=== PATIENT | female | born 1995 | race Caucasian/White ===

== ENCOUNTER 2017-01-05 16:14 | Emergency (ER) | payer BC ==
[~2017-01-05] VITALS: Ht 154.9 cm; Wt 46.0 kg
[~2017-01-05 16:14] MED LIST: BUPRTAB51 PO; LAMO100T16 PO; LISD30CA4 PO
[2017-01-05 16:40] VITALS: Ht 154.9 cm; Wt 46.0 kg
[2017-01-05] MEDS ORDERED: BUPR-79 PO (17:32)
[2017-01-05] MEDS ORDERED: BUPR150T5 PO (17:33)
[2017-01-05] MEDS ORDERED: LISD40CA PO (17:34)
[2017-01-05] MEDS ORDERED: ONDANSETRON INJ 2 MG/ML 2 ML VIAL IV STA (17:35)
[2017-01-05] MEDS ORDERED: SODIUM CHLORIDE 0.9% 1000ML 2,000 ML IV STA (17:35)
[2017-01-05 17:57] LABS: BASO % 0.5 %; BASO ABS # 0.02 K/uL (0-0.2); COMPLETE YES; EOS % 1.7 %; HEMATOCRIT 42.6 % (37-47); IG% 0.2 %; LYMPH ABS # 1.18 K/uL (1.2-3.4); MEAN CELL VOLUME 96.2 fL (80-100); MEAN CORPUSCULAR HEMOGLOBIN 34.1 pg (25-34); MEAN CORPUSCULAR HGB CONC 35.4 g/dl (32-36); MEAN PLATELET VOLUME 10.4 fL (7.4-10.4); NEUT % 50.6 %; PLATELET COUNT 244 K/uL (130-400); RED BLOOD COUNT 4.43 M/uL (4.2-5.4); WHITE BLOOD COUNT 4.21 K/uL (4.8-10.8)
[2017-01-05 18:15] LABS: BUN/CREATININE RATIO 6.3 (10-20); CALCIUM 9.4 mg/dl (8.5-10.1); CREATININE 0.63 mg/dl (0.60-1.20); POTASSIUM 3.2 mmol/L (3.5-5.1)
[2017-01-05 18:29] LABS: PREG INTERNAL NEGATIVE QC NEG CLEAR BACKGROUND; PREG INTERNAL POSITIVE QC POS CONTROL LINE
[2017-01-05] MEDS ORDERED: POTASSIUM CHLORIDE 10 MEQ TABCR PO STA (19:34)
[2017-01-05] MEDS ORDERED: CIPROFLOXACIN 500 MG TAB PO STA ×2 (19:43)
[2017-01-05] MEDS ORDERED: ONDANSETRON HOME PACK 4MG OD TAB PO ONE (19:45)
[2017-01-05] MEDS ORDERED: EMPTY 8 DRAM VIAL ONE (19:48)
[2017-01-05 19:50] LABS: URINE APPEARANCE CLEAR (CLEAR); URINE BILIRUBIN NEG (NEG); URINE COLOR YELLOW; URINE EPITHELIAL CELL AUTO >30 /lpf (0-5); URINE NITRITE NEG (NEG); UROBILINOGEN NEG (NEG)
[2017-01-05 19:52] LABS: MANUAL MICROSCOPIC REQUIRED? NO; REVIEW REQ? NO
[2017-01-05] MEDS ORDERED: CIPR-255 PO (19:55)
[2017-01-05 20:34] VITALS: BP 108/69; PULSE 85; TEMP 36.9; O2SAT 97
--- NOTE | 2017-01-05 21:29 | EMERGENCY ROOM VISIT NOTE ---
History Report prepared by Jorgeibemily: Darlene Hobson Under the Supervision of: Dr. Alan Jauregui M.D. First contact with patient: 17:10 Chief Complaint: DIARRHEA Stated Complaint: DIARRHEA,VOMITING,RECENT TRIP TO [facility] Nursing Triage Summary: Returned from [place] Thursday. Pt reports "I was violently throwing up and diarrhea before I left to come home." Since then, I have been throwing up and diarrhea. Pt reports "gas pain" History of Present Illness The patient is a 21 year old female who presents to the Emergency Room with complaints of persistent nausea, vomiting, and diarrhea that began 2 days ago. She also complains of some abdominal cramping, especially when she has episodes of vomiting and diarrhea. The patient notes that she was vacationing in [place] and woke up in the morning with vomiting and diarrhea for about 7-8 hours. Her symptoms did improve some, but she was very weak and needed her friends' assistance during their travel home. Since then, she has been able to keep down some fluids, but cannot keep down solid food. She also continues to feel nauseated and have diarrhea. She notes that she ate the same foods as her friends while in [place] but she was the only one who got sick. She drank bottled water while she was there. She thinks there may have been some blood in her diarrhea when her symptoms initially started, but she has not noticed any blood since. Pt denies LOC, headache, fevers, chills, diaphoresis, visual changes, neck pain, chest pain, breathing difficulties, abdominal pain, back pain, melena, hematochezia, urinary symptoms, numbness, weakness, lymphadenopathy, rash, or other complaints. Source of History: patient Onset: 2 days ago Position: other (GI) Quality: other ( nausea/vomiting/diarrhea) Timing: other (persistent) Associated Symptoms: + abdominal pain Review of Systems See HPI for pertinent positives and negatives. A total of ten systems were reviewed and were otherwise negative. Past Medical & Surgical Medical Problems: (1) Acute sinusitis (2) Fever (3) No pertinent past medical history Family History Patient reports no known family medical history. Social History Smoking Status: Never Smoker Alcohol Use: occasionally Drug Use: none Housing Status: lives with family Occupation Status: [employer] student Current/Historical Medications Scheduled Bupropion Hcl (Bupropion Hcl Xl), 150 MG PO DAILY Ciprofloxacin Hcl (Cipro), 500 MG PO BID Lamotrigine (Lamictal), 100 MG PO DAILY Lisdexamfetamine Dimesylate (Vyvanse), 40 MG PO [id number] Allergies Coded Allergies: No Known Allergies (Unverified , 10/04/16) Physical Exam Vital Signs Date Time Temp Pulse Resp B/P Pulse Ox O2 Delivery O2 Flow Rate FiO2 01/05/17 20:34 36.9 85 16 108/69 97 01/05/17 20:33 85 16 108/69 97 Room Air 01/05/17 18:35 87 16 110/71 97 Room Air 01/05/17 16:40 36.9 89 16 108/70 95 Room Air Physical Exam GENERAL: Awake, alert, well-appearing, in no distress HENT: Normocephalic, atraumatic. Dry mucous membranes; otherwise, oropharynx unremarkable. EYES: Normal conjunctiva. Sclera non-icteric. NECK: Supple. No nuchal rigidity. FROM. No JVD. RESPIRATORY: Clear to auscultation. CARDIAC: Regular rate, normal rhythm. Extremities warm and well perfused. Pulses equal. ABDOMEN: Soft, non-distended. No tenderness to palpation. No rebound or guarding. No masses. RECTAL: Deferred. MUSCULOSKELETAL: Chest examination reveals no tenderness. The back is symmetrical on inspection without obvious abnormality. There is no CVA tenderness to palpation. No joint edema. LOWER EXTREMITIES: Calves are equal size bilaterally and non-tender. No edema. No discoloration. NEURO: Normal sensorium. No sensory or motor deficits noted. SKIN: No rash or jaundice noted. Medical Decision & Procedures Laboratory Results 01/05/17 17:45 Red Blood Count 4.43, Mean Corpuscular Volume 96.2, Mean Corpuscular Hemoglobin 34.1, Mean Corpuscular Hemoglobin Concent 35.4, Mean Platelet Volume 10.4, Neutrophils (%) (Auto) 50.6, Lymphocytes (%) (Auto) 28.0, Monocytes (%) (Auto) 19.0, Eosinophils (%) (Auto) 1.7, Basophils (%) (Auto) 0.5, Neutrophils # (Auto ) 2.13, Lymphocytes # (Auto) 1.18, Monocytes # (Auto) 0.80, Eosinophils # (Auto ) 0.07, Basophils # (Auto) 0.02 01/05/17 17:45 Test 01/05/17 00:00 01/05/17 17:45 Urine Color YELLOW Urine Appearance CLEAR (CLEAR) Urine pH 7.0 (4.5-7.5) Urine Specific [place] 1.010 (1.000-1.030) Urine Protein NEG (NEG) Urine Glucose (UA) NEG (NEG) Urine Ketones NEG (NEG) Urine Occult Blood NEG (NEG) Urine Nitrite NEG (NEG) Urine Bilirubin NEG (NEG) Urine Urobilinogen NEG (NEG) Urine Leukocyte Esterase TRACE (NEG) Urine WBC (Auto) 1-5 /hpf (0-5) Urine RBC (Auto) 0-4 /hpf (0-4) Urine Hyaline Casts (Auto) 1-5 /lpf (0-5) Urine Epithelial Cells (Auto) >30 /lpf (0-5) Urine Bacteria (Auto) 1+ (NEG) White Blood Count 4.21 K/uL (4.8-10.8) Red Blood Count 4.43 M/uL (4.2-5.4) Hemoglobin 15.1 g/dL (12.0-16.0) Hematocrit 42.6 % (37-47) Mean Corpuscular Volume 96.2 fL (80-100) Mean Corpuscular Hemoglobin 34.1 pg (25-34) Mean Corpuscular Hemoglobin Concent 35.4 g/dl (32-36) Platelet Count 244 K/uL (130-400) Mean Platelet Volume 10.4 fL (7.4-10.4) Neutrophils (%) (Auto) 50.6 % Lymphocytes (%) (Auto) 28.0 % Monocytes (%) (Auto) 19.0 % Eosinophils (%) (Auto) 1.7 % Basophils (%) (Auto) 0.5 % Neutrophils # (Auto) 2.13 K/uL (1.4-6.5) Lymphocytes # (Auto) 1.18 K/uL (1.2-3.4) Monocytes # (Auto) 0.80 K/uL (0.11-0.59) Eosinophils # (Auto) 0.07 K/uL (0-0.5) Basophils # (Auto) 0.02 K/uL (0-0.2) RDW Standard Deviation 42.7 fL (36.4-46.3) RDW Coefficient of Variation 12.1 % (11.5-14.5) Immature Granulocyte % (Auto) 0.2 % Immature Granulocyte # (Auto) 0.01 K/uL (0.00-0.02) Anion Gap 9.0 mmol/L (3-11) Est Creatinine Clear Calc Drug Dose 103.4 ml/min Estimated GFR () 149.7 Estimated GFR (Non- 129.1 BUN/Creatinine Ratio 6.3 (10-20) Calcium Level 9.4 mg/dl (8.5-10.1) Total Bilirubin 0.6 mg/dl (0.2-1) Direct Bilirubin 0.1 mg/dl (0-0.2) Aspartate Amino Transf (AST/SGOT) 62 U/L (15-37) Alanine Aminotransferase (ALT/SGPT) 59 U/L (12-78) Alkaline Phosphatase 78 U/L (45-117) Total Protein 7.8 gm/dl (6.4-8.2) Albumin 3.8 gm/dl (3.4-5.0) Lipase 158 U/L (73-393) Human Chorionic Gonadotropin, Qual NEG (NEG) Laboratory results reviewed by me Medications Administered Medications (Trade) Dose Ordered Sig/Iliana Route Start Time Stop Time Status Last Admin Dose Admin Sodium Chloride (Nss 1000ml) 2,000 ml @ 999 mls/hr Q2H1M STAT IV 01/05/17 17:35 01/05/17 19:35 DC 01/05/17 18:05 999 MLS/HR Ondansetron HCl (Zofran Inj) 4 mg NOW STAT IV 01/05/17 17:35 01/05/17 17:37 DC 01/05/17 18:05 4 MG Potassium Chloride (Klor-Con M10) 20 meq NOW STAT PO 01/05/17 19:34 01/05/17 19:35 DC 01/05/17 19:43 20 MEQ Ciprofloxacin (Cipro Tab) 500 mg NOW STAT PO 01/05/17 19:43 01/05/17 19:45 DC 01/05/17 19:52 500 MG Ciprofloxacin (Cipro Tab) 500 mg NOW STAT PO 01/05/17 19:43 01/05/17 19:45 DC 01/05/17 19:57 500 MG Ondansetron HCl (ZOFRAN ODT 4MG Home Pack) 1 homepack UD ONCE PO 01/05/17 19:45 01/05/17 19:46 DC 01/05/17 19:52 1 [facility]OM[facility] ED Course 1733: The patient was evaluated in room C7. A complete history and physical exam was performed. Ordered Zofran Inj 4 mg IV, NSS 2000 ml @ 999 mls/hr IV. 1929: I reassessed the patient. She was feeling better. 1933: Ordered Klor-con M10 20 meq PO. 1942: Ordered Cipro Tab 500 mg PO, Cipro Tab 500 mg PO, Ondansetron HCl 1 homepack PO. 1944: I reevaluated the patient. She was resting comfortably and was able to keep down her potassium. Discussed results and discharge instructions: She verbalized understanding and agreement. The patient is ready for discharge. Medical Decision Prior records/ancillary studies reviewed. Triage Nursing notes reviewed and agree them. Additional history obtained from the family. The patient did ask for me to discuss the case with her mother. The patient's history was concerning for nausea, vomiting, diarrhea, and recent travel to [place] Differential diagnosis: Etiologies such as gastroenteritis, food borne illness, infections, appendicitis , diverticulitis, inflammatory bowel disease, GI bleed, biliary pathology, as well as others were entertained. Physical examination findings: As above. Benign abdomen. ER treatment provided: IV hydration 2 L NSS. IV Zofran On reassessment the patient felt better. Patient was tolerating p.o. intake. Oral potassium Oral Cipro Diagnostics interpretation by me: The labs revealed an unremarkable CBC and chemistry panel except for mild hypokalemia. Urinalysis negative. The patient is not . No stool samples provided. Imaging studies: Deferred Patient has travelers diarrhea and vomiting with mild hypokalemia. She has not had any bloody stools. I discussed conservative management and treatment with Cipro to hasten the course of her disease. The patient and mother felt very comfortable with this. If she worsens in any way she will come back to the Emergency Room. She will follow-up closely in the clinic. By the evaluation outlined above emergent etiologies such as appendicitis, diverticulitis, mesenteric ischemia, aortic pathology, inflammatory bowel disease, renal colic, PUD, biliary pathology, UTI, as well as others were deemed relatively unlikely. The patient and mother were informed about the findings as listed above. All questions were answered and they were pleased with the treatment. Return instructions were outlined and the patient was discharged in stable condition. Outpatient prescription management: Cipro Zofran Referral: The patient was referred to her primary care physician for follow-up in 2 to 3 days for a recheck of the current condition. The chart was completed utilizing [employer] Speech voice recognition software. Grammatical errors, random word insertions, pronoun errors, and incomplete sentences are an occasional consequence of this system due to software limitations, ambient noise, and hardware issues. Any formal questions or concerns about the content, text, or information contained within the body of this dictation should be directly addressed to the physician for clarification. Impression Primary Impression: Vomiting and diarrhea Additional Impression: Hypokalemia Scribe Attestation The scribe's documentation has been prepared under my direction and personally reviewed by me in its entirety. I confirm that the note above accurately reflects all work, treatment, procedures, and medical decision making performed by me. Departure Information Dispostion Home / Self-Care Prescriptions Ciprofloxacin Hcl (CIPRO) 500 Mg Tab 500 MG PO BID, #4 TAB Prov: Alan Jauregui MD 01/05/17 Referrals No Doctor, Assigned (PCP) [facility] Patient Instructions My [facility] Additional Instructions Ciprofloxacin 500mg: Take one pill twice daily for 3 days for your infection. All antibiotics can cause diarrhea. If this occurs and you feel worse or it does not resolve in 1-2 days follow up with your doctor or return to the Emergency Department as this could be signs of serious underlying problems. Any medication can cause an allergic reaction or complication, stop the pills immediately and return to the ER for rash, hives, breathing difficulties, tendon pain, tendon injury, or swelling. Zofran(odansetron) tablets 4mg: Take one and allow it to dissolve in your mouth every four to six hours as needed for nausea or vomiting. Acetaminophen(Tylenol) may be used for fever or pain. Use 650 mg every six hours as needed. Rest and drink plenty of fluids as tolerated. Slow sips of water or sports drinks are recommended instead of large amounts all at once. Continue current medications. Once your stomach is settled start with a clear liquid diet (jello, soup broth, etc.) and then advance as tolerated. You should avoid full, heavy meals for about 24 hrs from the time your symptoms resolved. Return to the ER for persistent vomiting, fevers, abdominal pain, chest pains, difficulty breathing, black or bloody stools, worsening of your condition, or as needed. Follow up with [facility] in 1-2 days for a recheck of your current condition Problem Qualifiers
== END 2017-01-05 20:35 | disposition home or self-care (01) ==
LOC: C.EDB 16:15 → C.EDC 20:35
DX: R19.7 Diarrhea, unspecified (principal); R11.10 Vomiting, unspecified; E87.6 Hypokalemia; Z79.899 Other long term (current) drug therapy